=== PATIENT | female | born 1980 | race Two or more races ===

== ENCOUNTER 2018-08-26 12:49 | Outpatient (CLI) | payer OTHER | END 2018-08-26 12:58 | disposition home or self-care (01) | LOC: LAB 12:49 | DX: D69.6 Thrombocytopenia, unspecified (principal) ==

== ENCOUNTER 2021-01-15 22:18 | Emergency (ER) | payer OTHER ==
[~2021-01-15] VITALS: Ht 144.8 cm; Wt 49.9 kg
[2021-01-16] MEDS ORDERED: PEPCID40 MG PO (05:24)
[2021-01-16] MEDS ORDERED: ZOFRAN4 MG PO (05:24)
[2021-01-16] MEDS ORDERED: LEVSIN/SL0.125 MG SL (05:24)
== END 2021-01-16 06:06 ==
LOC: ER 22:18
DX: R10.9 Unspecified abdominal pain (principal); Z03.818 Encounter for observation for suspected exposure to other biological agents ruled out

== ENCOUNTER 2021-01-18 13:05 | Emergency (ER) | payer OTHER ==
[~2021-01-18] VITALS: Ht 149.9 cm; Wt 49.9 kg
[~2021-01-18 13:05] MED LIST: LEVSIN/SL0.125 MG SL; PEPCID40 MG PO; ZOFRAN4 MG PO
[2021-01-18] MEDS ORDERED: LEVSIN/SL0.125 MG SL (18:46)
[2021-01-18] MEDS ORDERED: PEPCID AC20 MG PO (18:46)
== END 2021-01-18 18:58 | disposition home or self-care (01) ==
LOC: ER 13:05
DX: R10.13 Epigastric pain (principal)

== ENCOUNTER 2021-06-26 14:07 | Emergency (ER) | payer OTHER ==
[~2021-06-26] VITALS: Ht 137.2 cm; Wt 49.9 kg
[~2021-06-26 14:07] MED LIST changes: +PEPCID AC20 MG PO
== END 2021-06-26 16:46 | disposition home or self-care (01) ==
LOC: ER 14:07
DX: M94.0 Chondrocostal junction syndrome [Tietze] (principal)

== ENCOUNTER 2022-04-30 18:22 | Emergency (ER) | payer OTHER ==
[~2022-04-30] VITALS: Ht 154.9 cm; Wt 54.4 kg
== END 2022-05-01 00:41 | disposition home or self-care (01) ==
LOC: ER 18:22
DX: S09.90XA Unspecified injury of head, initial encounter (principal); W19.XXXA Unspecified fall, initial encounter; Y93.89 Activity, other specified; Y92.009 Unspecified place in unspecified non-institutional (private) residence as the place of occurrence of the external cause; Y99.9 Unspecified external cause status

== ENCOUNTER 2022-08-24 10:56 | Emergency (ER) | payer OTHER ==
[~2022-08-24] VITALS: Ht 154.9 cm; Wt 52.2 kg
== END 2022-08-24 15:08 | disposition home or self-care (01) ==
LOC: ER 10:56
DX: R42 Dizziness and giddiness (principal); R53.81 Other malaise

== ENCOUNTER 2023-03-08 09:52 | Outpatient (CLI) | payer OTHER | END 2023-03-08 10:15 | disposition home or self-care (01) | LOC: MAMO-SONO 09:52 | DX: Z12.31 Encounter for screening mammogram for malignant neoplasm of breast (principal); N63.11 Unspecified lump in the right breast, upper outer quadrant; N63.21 Unspecified lump in the left breast, upper outer quadrant ==